=== PATIENT | female | born 1970 | race Caucasian/White ===

== ENCOUNTER 2016-05-19 11:42 | Emergency (ER) | payer BC ==
[~2016-05-19] VITALS: Ht 167.6 cm; Wt 75.0 kg
[~2016-05-19 11:42] MED LIST: ANTISOL30 LEFT EAR; IBUP600T26 PO; TRAZ50TA4 PO
[2016-05-19 11:44] VITALS: BP 167/118; PULSE 102; RESP 14; TEMP 98.7; O2SAT 97
[2016-05-19] MEDS ORDERED: IBUP-232 PO (16:40)
[2016-05-19] MEDS ORDERED: SODIUM CHLOR 0.9% 1000 ML INJ 1,000 ML IV SCH (17:12)
[2016-05-19] MEDS ORDERED: KETOROLAC TROMETHAMINE 30 MG/ML (IVP) VIAL IV PUSH ONE (17:15)
[2016-05-19] MEDS ORDERED: SODIUM CHLORIDE 0.9% FLUSH 5 ML FLUSH IVF PRN (17:15)
[2016-05-19] MEDS ORDERED: METOCLOPRAMIDE HCL 10 MG/2 ML VIAL IV PUSH ONE (17:15)
[2016-05-19 17:28] VITALS: O2SAT 99
[2016-05-19 17:32] LABS: HEMATOCRIT 43.3 % (35.0-46.0); MEAN CELL VOLUME 91.2 FL (80.0-100.0); MEAN CORPUSCULAR HEMOGLOBIN 30.3 PG (27.0-34.0); MEAN CORPUSCULAR HGB CONC 33.2 % (32.0-36.0); PLATELET COUNT 128 TH/MM3 (150-450); RED BLOOD COUNT 4.75 MIL/MM3 (4.00-5.30)
[2016-05-19 17:34] LABS: HEMO FLAGS AUTO DIFF
--- NOTE | 2016-05-19 17:36 | RADRPT ---
EXAM DATE/TIME: 05/19/2016 17:22 [place] COMPARISON: CHEST SINGLE AP, April 21, 2015, 19:00. INDICATIONS : Cough and congestion for the past few days. Nausea and vomiting also. MEDICAL HISTORY : None. SURGICAL HISTORY : Breast augmentation. ENCOUNTER: Initial ACUITY: 3 days PAIN SCORE: 0/10 LOCATION: Bilateral chest FINDINGS: A single view of the chest demonstrates the lungs to be symmetrically aerated without evidence of mas s, infiltrate or effusion. The cardiomediastinal contours are unremarkable. Osseous structures are intact. There are multiple overlying electrocardiogram leads. CONCLUSION: No acute disease. Daryl Herring MD on May 19, 2016 at 17:34 Board Certified Radiologist. This report was verified electronically.
--- NOTE | 2016-05-19 17:37 | PD ---
HPI Chief Complaint: GI Complaint Time Seen by Provider: 17:09 Travel History International Travel<30 days: No Contact w/Intl Traveler<30days: No Traveled to known affect area: No History of Present Illness HPI 45-year-old female here for evaluation of nausea, vomiting, diarrhea, cough, generalized malaise, and bodyaches. Symptoms have been going on for 3 days. She measured a low-grade temperature at home. Emesis and bowel movements are nonbloody. No abdominal pain. 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) Immune Disorder: Yes (lupus) ?: Not LMP: ABLATION 2013 : 2 Para: 2 Miscarriage: 0 : 0 Past Surgical History Abdominal Surgery: Yes Gynecologic Surgery: Yes (ABLATION, CONE NECK, OVARY CYST REMOVED) Other Surgery: Yes (BREAST AUGMENTATION) Social History Alcohol Use: Yes Tobacco Use: Yes (4-5 CIG PER DAY) Substance Use: No Allergies-Medications (Allergen,Severity, Reaction): Coded Allergies: Morphine (Verified Allergy, Unknown, 05/19/16) Reported Meds & Prescriptions Reported Meds & Active Scripts Active Reported Ibuprofen 600 Mg Tab 600 Mg PO TID Review of Systems Except as stated in HPI: all other systems reviewed are Neg Physical Exam Narrative GENERAL: Well-developed, well-nourished, comfortable, no acute distress. SKIN: Warm and dry. No rash. HEAD: Atraumatic. Normocephalic. EYES: Pupils equal and round. No scleral icterus. No injection or drainage. ENT: Mucous membranes pink and dry. NECK: Trachea midline. No JVD. No nuchal rigidity. CARDIOVASCULAR: Regular rate and rhythm. RESPIRATORY: No accessory muscle use. Clear to auscultation. Breath sounds equal bilaterally. GASTROINTESTINAL: Abdomen soft, non-tender, nondistended. Normal bowel sounds. MUSCULOSKELETAL: No obvious deformities. No clubbing. No cyanosis. No edema. NEUROLOGICAL: Awake and alert. No obvious cranial nerve deficits. Motor grossly within normal limits. Normal speech. PSYCHIATRIC: Appropriate mood and affect; insight and judgment normal. Data Data Last Documented VS Vital Signs Date Time Temp Pulse Resp B/P Pulse Ox O2 Delivery O2 Flow Rate FiO2 05/19/16 17:28 99 Room Air 05/19/16 11:44 98.7 102 14 167/118 Orders Complete Blood Count With Diff (05/19/16 17:12) Comprehensive Metabolic Panel (05/19/16 17:12) Lipase (05/19/16 17:12) Urinalysis - C+S If Indicated (05/19/16 17:12) Iv Access Insert/Monitor (05/19/16 17:12) Ecg Monitoring (05/19/16 17:12) Oximetry (05/19/16 17:12) Sodium Chlor 0.9% 1000 Ml Inj (Ns 1000 M (05/19/16 17:12) Sodium Chloride 0.9% Flush (Ns Flush) (05/19/16 17:15) Metoclopramide Inj (Reglan Inj) (05/19/16 17:15) Ketorolac Inj (Toradol Inj) (05/19/16 17:15) Influenzae A/B Antigen (05/19/16 17:12) Chest, Single Ap (05/19/16 ) Sodium Chlor 0.9% 1000 Ml Inj (Ns 1000 M (05/19/16 18:15) Sodium Chlor 0.9% 1000 Ml Inj (Ns 1000 M (05/19/16 18:15) Labs Laboratory Tests Test 05/19/16 05/19/16 17:16 17:20 White Blood Count 3.0 TH/MM3 Red Blood Count 4.75 MIL/MM3 Hemoglobin 14.4 GM/DL Hematocrit 43.3 % Mean Corpuscular Volume 91.2 FL Mean Corpuscular Hemoglobin 30.3 PG Mean Corpuscular Hemoglobin 33.2 % Concent Red Cell Distribution Width 13.0 % Platelet Count 128 TH/MM3 Mean Platelet Volume 8.9 FL Neutrophils (%) (Auto) % Lymphocytes (%) (Auto) % Monocytes (%) (Auto) % Eosinophils (%) (Auto) % Basophils (%) (Auto) % Neutrophils # (Auto) TH/MM3 Lymphocytes # (Auto) TH/MM3 Monocytes # (Auto) TH/MM3 Eosinophils # (Auto) TH/MM3 Basophils # (Auto) TH/MM3 CBC Comment AUTO DIFF Differential Total Cells 100 Counted Neutrophils % (Manual) 54 % Band Neutrophils % 19 % Lymphocytes % 19 % Monocytes % 7 % Neutrophils # (Manual) 2.2 TH/MM3 Metamyelocytes 1 % Differential Comment FINAL DIFF MANUAL Platelet Estimate LOW Platelet Morphology Comment NORMAL Red Cell Morphology Comment NORMAL Sodium Level 136 MEQ/L Potassium Level 4.2 MEQ/L Chloride Level 102 MEQ/L Carbon Dioxide Level 23.8 MEQ/L Anion Gap 10 MEQ/L Blood Urea Nitrogen 10 MG/DL Creatinine 0.82 MG/DL Estimat Glomerular Filtration 75 ML/MIN Rate Random Glucose 92 MG/DL Calcium Level 8.9 MG/DL Total Bilirubin 0.6 MG/DL Aspartate Amino Transf 84 U/L (AST/SGOT) Alanine Aminotransferase 74 U/L (ALT/SGPT) Alkaline Phosphatase 139 U/L Total Protein 7.7 GM/DL Albumin 3.6 GM/DL Lipase 124 U/L Urine Color YELLOW Urine Turbidity CLEAR Urine pH 5.5 Urine Specific [place] 1.007 Urine Protein NEG mg/dL Urine Glucose (UA) NEG mg/dL Urine Ketones NEG mg/dL Urine Occult Blood NEG Urine Nitrite NEG Urine Bilirubin NEG Urine Urobilinogen LESS THAN 2.0 MG/DL Urine Leukocyte Esterase NEG Urine Squamous Epithelial <1 /hpf Cells Microscopic Urinalysis Comment CULT NOT INDICATED MDM Medical Decision Making Medical Screen Exam Complete: Yes Emergency Medical Condition: Yes Medical Record Reviewed: Yes Differential Diagnosis Gastroenteritis, dehydration, viral illness, influenza, pneumonia Narrative Course Vital signs show heart rate 102, blood pressure 157/118, pulse ox 97% on room air, oral temp of 98.7F. CBC shows WBC 3, hemoglobin 14.4, hematocrit 43.3, platelets 128, band neutrophils 19%. CMP is remarkable for AST 84, ALT 74, alkaline phosphatase 139, otherwise unremarkable. Lipase is 124. UA is not suggestive of UTI. Chest x-ray shows no acute disease. Influenza A positive. Patient was given 2 L of IV fluids, IV Reglan, and IV Toradol and is feeling improved. Symptoms have been going on for 3 days and this was discussed with the patient, and she will likely not receive benefit from Tamiflu. The patient was made aware of her leukopenia, thrombocytopenia, and transaminitis, and advised to follow-up with his as an outpatient. Her bandemia is likely secondary to influenza A. She is well-appearing and is stable for discharge home with outpatient follow-up. She was advised to stay well hydrated with plenty of fluids and to keep fever under control with Tylenol and ibuprofen. She was informed on when to return to the emergency department. She verbalizes understanding and agreement with plan. Diagnosis Primary Impression: Influenza A Additional Impressions: Leukopenia Qualified Code: D72.819 - Leukopenia, unspecified type Transaminitis Referrals: Primary Care Physician 3 days Additional Instructions: Follow-up with your primary care physician this week. Stay hydrated with plenty of fluids. Keep fever under control with Tylenol and ibuprofen. Return to the emergency room if worsening symptoms or any other concerns. Disposition: 01 DISCHARGE HOME Condition: Stable Steve Tian MD May 19, 2016 17:37
[2016-05-19 17:53] LABS: BLOOD, URINE NEG (NEG); GLUCOSE,URINE NEG (NEG); KETONE, URINE NEG (NEG); NITRITE,URINE NEG (NEG); PH, URINE 5.5 (5.0-8.5); SQUAMOUS EPITHELIAL CELL URINE <1 /hpf (0-5); URINE COLOR YELLOW (YELLW/STRAW)
[2016-05-19 17:59] LABS: COMMENT (UR) CULT NOT INDICATED; CULTURE IF INDICATED CULT NOT INDICATED
[2016-05-19 18:00] LABS: ALKALINE PHOSPHATASE 139 U/L (45-117); BANDS 19 % (0-6); METAMYELOCYTES 1 % (0-1); NEUTROPHIL # MANUAL DIFF 2.2 TH/MM3 (1.8-7.7); POLYS (SEG NEUTROPHILS) 54 % (16-70); TOTAL BILIRUBIN ADULT 0.6 MG/DL (0.2-1.0); WBC DIFF SAMPLE 100
[2016-05-19 18:01] LABS: PLATELET ESTIMATE SMEAR LOW (NORMAL); PLATELET MORPHOLOGY NORMAL (NORMAL); SCAN/DIFF FINAL DIFF MANUAL
[2016-05-19 18:05] LABS: ALT (GPT) 74 U/L (10-53); ANION GAP 10 MEQ/L (5-15); AST (GOT) 84 U/L (15-37); BICARBONATE 23.8 MEQ/L (21.0-32.0); BLOOD UREA NITROGEN 10 MG/DL (7-18); CHLORIDE 102 MEQ/L (98-107); GLOMERULAR FILTRATION RATE 75 ML/MIN (>89); SODIUM (NA) 136 MEQ/L (136-145)
[2016-05-19 18:06] LABS: POTASSIUM 4.2 MEQ/L (3.5-5.1)
[2016-05-19] MEDS ORDERED: SODIUM CHLOR 0.9% 1000 ML INJ 1,000 ML IV ONE ×2 (18:15)
[2016-05-19 18:53] VITALS: BP 150/77; PULSE 67; RESP 15; O2SAT 99
== END 2016-05-19 19:07 | disposition home or self-care (01) ==
LOC: NEPD 11:42
DX: J09.X2 Influenza due to identified novel influenza A virus with other respiratory manifestations (principal); D72.819 Decreased white blood cell count, unspecified; R74.0 Nonspecific elevation of levels of transaminase and lactic acid dehydrogenase [LDH]; M32.9 Systemic lupus erythematosus, unspecified
CPT/HCPCS: 71010; 80053; 81001; 83690; 85007; 85027; 87804; 96374; 96375; 99284; J1885; J2765; J7030